=== PATIENT | male | born 1970 | race Caucasian/White ===

== ENCOUNTER 2021-11-26 08:26 | Emergency (ER) | payer BC ==
[2021-11-26] MEDS ORDERED: Sodium Chloride 0.9% 10 ML Syringe FLUSH PRN (08:58)
[2021-11-26] MEDS ORDERED: Lactated Ringers 1,000 ML IV SCH (09:00)
[2021-11-26] MEDS ORDERED: LORazepam 2 MG/ML SDV IVPUSH ONE (09:00)
[2021-11-26 09:39] LABS: ESTIMATED GFR 73 mL/min (>60); TROPONIN I HIGH SENSITIVITY 16.7 pg/mL (<=60.3)
[2021-11-26] MEDS ORDERED: Glucagon,Human Recombinant 1 MG Vial IM PRN (10:11)
[2021-11-26] MEDS ORDERED: Insulin Regular, Human 100 Units/ML 3 ML Vial SUBCUT ONE (10:11)
[2021-11-26] MEDS ORDERED: 50% Dextrose in Water 50 ML Syringe IVPUSH PRN (10:11)
[2021-11-26 10:15] LABS: CORONAVIRUS COVID-19 NAA NEGATIVE (NEGATIVE)
[2021-11-26] MEDS ORDERED: Iopamidol 755 Mg/ML 100 ML Bottle IV ONE (12:38)
[2021-11-26] MEDS ORDERED: Sodium Chloride 0.9% 75 ML IV SCH (12:45)
[2021-11-26] MEDS ORDERED: Meclizine 25 MG Tab PO ONE ×2 (14:35→15:02)
== END 2021-11-26 18:00 ==
LOC: JP.ED 08:26
DX: R42 Dizziness and giddiness (principal); I48.91 Unspecified atrial fibrillation; I25.10 Atherosclerotic heart disease of native coronary artery without angina pectoris; E78.00 Pure hypercholesterolemia, unspecified; I10 Essential (primary) hypertension; I25.2 Old myocardial infarction; E11.40 Type 2 diabetes mellitus with diabetic neuropathy, unspecified; F17.210 Nicotine dependence, cigarettes, uncomplicated; Z79.82 Long term (current) use of aspirin; Z79.4 Long term (current) use of insulin; Z79.899 Other long term (current) drug therapy; Z20.822 Contact with and (suspected) exposure to COVID-19
CPT/HCPCS: 0241U; 36415; 36600; 70450; 70496; 70498; 80053; 80162; 81001; 82009; 82803; 82947; 83605; 83690; 84484; 85025; 93010; 96361; 96374; 99284; 99285-25; A9270-GY; J1815-GY; J2060; J3490; J7120; Q9967